=== PATIENT | male | born 1985 | race Caucasian/White ===

== ENCOUNTER 2019-07-23 13:13 | Observation (INO) | payer SELFPAY ==
[~2019-07-23 13:13] MED LIST: Iopamidol-370 76% 500 ML 1 ML ONE
[2019-07-23] MEDS ORDERED: Acetaminophen 500 MG TAB ONE (13:27)
[2019-07-23] MEDS ORDERED: Ketorolac Tromethamine 30 MG/ML VIAL ONE (13:27)
[2019-07-23] MEDS ORDERED: Diazepam 5 MG TAB ONE (13:28)
--- NOTE | 2019-07-23 13:53 | RAD ---
CHEST 1 VIEW: INDICATION: Back pain and chest pain. FINDINGS: The lungs are mildly hyperinflated but clear. Heart size is normal-appearing. No pleural effusion o r pneumothorax is evident. IMPRESSION: Mild hyperinflation without acute airspace opacity. POS: BH
[2019-07-23 13:57] LABS: Hemoglobin 15.8 g/dL (14.0-18.0); Mean Corpuscular HGB CONC 33.5 g/dL (32.0-36.0); Mean Corpuscular Hemoglobin 31.5 pg (27.0-31.0); Mean Corpuscular Volume 94.1 fL (78.0-98.0); Mean Platelet Volume 8.7 fL (7.4-10.4); Platelet Count 239 thou/uL (130-400); RBC Distribution Width 12.6 % (11.5-14.5); Red Blood Cell (RBC) Count 5.03 mill/uL (4.70-6.10); White Blood Cell (WBC) Count 6.2 thou/uL (4.8-10.8)
[2019-07-23 14:19] LABS: Acetaminophen Less than 6.0 mcg/mL (10.0-30.0); Alcohol Less than 10 mg/dL (Less than 10); Band 1 % (5-11); Eosinophils 1 % (0-10); Lymphocytes 56 % (21-51); MDiff Complete? YES; Monocytes 5 % (0-10); Neutrophil 37 % (42-75); Platelet Morphology Comment Appears Adequate; RBC Morphology Normal; Salicylate Less than 8.0 mg/dL (15.0-30.0)
[2019-07-23 14:21] LABS: ALT (SGPT) 14 U/L (8-55); AST (SGOT) 19 U/L (5-34); Albumin 4.5 g/dL (3.5-5.0); Alkaline Phosphatase 87 U/L (40-110); Anion Gap 15 mmol/L (10-20); BUN (Urea Nitrogen) 9 mg/dL (8.9-20.6); Bilirubin, Total 0.4 mg/dL (0.2-1.2); Calc. Creatinine Clearance 0 mL/min (70-130); Calcium 9.3 mg/dL (7.8-10.44); Carbon Dioxide 22 mmol/L (22-29); Chloride 106 mmol/L (98-107); Estimated GFR-MDRD 87; Globulin 3.4 g/dL (2.4-3.5); Glucose 94 mg/dL (70-105); Potassium 3.7 mmol/L (3.5-5.1); Protein, Total 7.9 g/dL (6.0-8.3); Sodium 139 mmol/L (136-145)
--- NOTE | 2019-07-23 14:56 | CT ---
CHEST CT ANGIOGRAM WITH 3D RENDERING ABDOMEN CTA WITH 3D RENDERING: HISTORY: Aortic dissection with worsening back and abdominal pain. FINDINGS: CT angiogram chest with 3D rendering demonstrates no evidence for aortic aneurysm or dissection. Mary dequate contrast within the pulmonary arteries to evaluate for pulmonary embolism. No acute pulmonar y parenchymal process. No mediastinal mass or adenopathy. No pleural effusion or pericardial effusi on. ABDOMEN CT ANGIOGRAM WITH 3D RENDERING: The abdominal aorta appears unremarkable without evidence for aneurysm or significant stenosis. No e vidence for an associated calcified plaque. The visualized celiac artery, superior mesenteric artery , right and left renal arteries, and inferior mesenteric arteries appear unremarkable. No abscess or abnormal fluid collection. Evidence for a left-sided pars defect at L5-S1 without significant anter olisthesis. IMPRESSION: Unremarkable CT angiogram of the chest and abdomen. No evidence for aortic aneurysm or dissection. Left-sided pars defect at L5 without significant anterolisthesis. POS: RRE
[2019-07-23 16:02] LABS: Bilirubin Negative (Negative); Blood, Urine Negative (Negative); Clarity Clear (Clear); Glucose, Urine (Dipstick) Normal (Negative); Leukocyte Negative Leu/uL (Negative); Nitrite Negative (Negative); Protein, Urine (Dipstick) Negative (Neg-Trace); Urobilinogen Normal mg/dL (Less than 2)
[2019-07-23] MEDS ORDERED: Ketamine 50 MG/ML (10ML VIAL) ONE (16:02)
[2019-07-23] MEDS ORDERED: HYDROcodone/Acetaminophen 10/325 mg Tablet ONE (16:03)
[2019-07-23 16:12] LABS: Amphetamine Not Detected (NotDetected); Barbiturates Screen Not Detected (NotDetected); Benzodiazepine Screen Not Detected (NotDetected); Cocaine Metabolite Screen Not Detected (NotDetected); Medtox Control Line Valid? VALID (VALID); Medtox Reader # READER 1; Methadone Not Detected (NotDetected); Methamphetamine Not Detected (NotDetected); Opiate Screen Not Detected (NotDetected); Oxycodone Screen Not Detected (NotDetected); Phencyclidine (PCP) Not Detected (NotDetected); THC/Cannabinoid Screen Detected (NotDetected); Tricyclic Screen Not Detected (NotDetected)
--- NOTE | 2019-07-23 19:33 | CT ---
CT HEAD NONCONTRAST: History: Altered mental status. Comparison: 04-27-15 FINDINGS: There is no evidence of acute intracranial hemorrhage or infarct. The ventricles appear normal in siz e, shape, and position. There is no mass effect or shift of midline structures. Post-operative change s of the face are partially visualized. IMPRESSION: No acute intracranial abnormalities are demonstrated. POS: BST
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
[2019-07-23] MEDS ORDERED: Ondansetron PF 4 MG/2 ML Vial IVP PRN (21:12)
[2019-07-23] MEDS ORDERED: Acetaminophen 325 MG TAB PO PRN (21:12)
[2019-07-23] MEDS ORDERED: Ketorolac Tromethamine 30 MG/ML VIAL IVP PRN (21:12)
[2019-07-23] MEDS ORDERED: Cyclobenzaprine 10 MG TAB PO SCH (21:15)
[2019-07-23 23:49] VITALS: BMI 25.0
--- NOTE | 2019-07-24 06:02 | PDOC.FM ---
- Subjective Subjective: Pt remains with thoracic back pain today. He has not felt this before. He did not take medications overnight to help with pain. He has difficulty rolling from side to side. Pain with light palpation. - Objective Vital Signs & Weight: Vital Signs (12 hours) Temp Pulse Resp BP Pulse Ox 07/24/19 03:53 97.5 F L 49 L 12 117/70 99 07/23/19 22:55 98.6 F 46 L 16 119/78 99 Weight Weight 76.975 kg Result Diagrams: 07/23/19 13:42 07/23/19 13:42 Phys Exam - Physical Examination uncomfortable appearing HEENT: PERRLA, moist MMs Neck: no JVD, full ROM Respiratory: no wheezing, clear to auscultation bilateral Cardiovascular: RRR, no significant murmur Gastrointestinal: soft, non-tender, no distention Musculoskeletal: no edema, pulses present Tenderness to palpation R>L flank/axillary region; Thoracic PS tenderness Neurological: non-focal, normal sensation Psychiatric: normal affect, A&O x 3 Dx/Plan (1) Muscle spasm Code(s): M62.838 - OTHER MUSCLE SPASM Status: Acute (2) Thoracic back sprain Code(s): S23.9XXA - SPRAIN OF UNSPECIFIED PARTS OF THORAX, INITIAL ENCOUNTER Status: Acute (3) Vasovagal episode Code(s): R55 - SYNCOPE AND COLLAPSE Status: Acute - Plan Plan: Thoracic back pain - likely muscle spasm - continue flexeril prn, start tylenol/ibuprofen if pain continues - PT / OT to evaluate today Vasovagal - likely 2/2 pain. - bradycardic on monitor - orthostatics negative Dispo: Stable Code: Full PCP: None Addendum - Attending - Attending Attestation Date/Time: 07/24/19 8049 I personally evaluated the patient and discussed the management with Dr. Baker. I agree with the History, Examination, Assessment and Plan documented above with any addition or exceptions noted below. Neuro to evaluate for seizure like activity this morning. Continue pain control. igor d/c later today or tomorrow.
[2019-07-24] MEDS ORDERED: Cyclobenzaprine 10 MG TAB PO SCH (09:00)
[2019-07-24] MEDS ORDERED: Magnevist 469MG/ML 20 ML VIAL ONE (09:06)
[2019-07-24] MEDS ORDERED: Ibuprofen 800 MG TAB PO PRN (11:23)
[2019-07-24] MEDS ORDERED: traMADol HCl 50 MG TAB PO PRN (11:25)
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
[2019-07-24 15:42] VITALS: BP 137/69; TEMP 98.3
--- NOTE | 2019-07-24 15:49 | MRI ---
MRI BRAIN WITH AND WITHOUT CONTRAST: DATE: 07/24/2019 HISTORY: 33-year-old male with seizure and altered mental status COMPARISON: 08/18/2008 TECHNIQUE: Multiplanar, multisequence MRI of the brain performed pre- and post-IV injection of gadolinium based contrast agent. FINDINGS: At the far anterior aspect of the left temporal lobe, including temporal tip, there is a small to mod erate-sized region of encephalomalacia and gliosis. There is a thin vertically oriented tract of gliosis in the right frontal lobe, in the centrum semiov nicole, leading to the superior surface of the body of the right lateral ventricle. No gross asymmetry between the right and left hippocampus. Ventricles are normal in size and configuration. No new intra-axial signal abnormality, restricted diffusion, abnormal enhancement, mass, mass effect, midline shift, or extra-axial fluid collection. No interval change overall. IMPRESSION: 1) old insult at the left temporal tip. 2) tract from previously removed right ventriculostomy catheter. 3) no acute or aggressive findings.
--- NOTE | 2019-07-24 16:33 | EEG ---
Referring Physician: Jayden TABARES EEG # [id number] TEST TYPE: EXTENDED CONTINUOUS VIDEO EEG RECORDING. REPORT: This EEG was performed using 24 channel [employer] video EEG machine with 24 disc electrodes. This was an extended 2 hour 10 minutes of inpatient video EEG recording. Digital analysis of the EEG was done for spike and seizure detection which revealed no abnormalities. BACKGROUND: The posterior background rhythm is 9-10 hertz. The background rhythm attenuates with eye opening and enhances with eye closure. HYPERVENTILATION: No significant response seen with hyperventilation. PHOTIC STIMULATION: Bioccipital symmetric driving response is observed with photic stimulation. SLEEP: Drowsiness and sleep are observed. EEG DIAGNOSIS: NORMAL AWAKE, DROWSY AND ASLEEP EEG. Perfect Binder Operator: CASS Anesthesia Attending: EEG.DONTE DUTTA
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
== END 2019-07-24 16:42 | disposition home or self-care (01) ==
LOC: ERS 13:13 → 2SE 20:47
PROVIDERS: ADMIT Family Medicine; ATTEND Family Medicine
DX: S23.9XXA Sprain of unspecified parts of thorax, initial encounter (principal); M62.838 Other muscle spasm; R55 Syncope and collapse; Z88.0 Allergy status to penicillin; Z88.5 Allergy status to narcotic agent
CPT/HCPCS: 36415; 70450; 70553; 71045; 71275; 72191; 74175; 80053; 80306; 80307; 81003; 84146; 84484; 85025; 93005; 95712; 95816; 95819; 95957; 96361; 96374; 96375; 96376; A9579; G0378; J1885; Q9967

== ENCOUNTER 2021-07-01 18:01 | Emergency (ER) | payer OTHER, SELFPAY ==
[2021-07-01] MEDS ORDERED: Xylocaine 1% w/ Epi 1:100K 10 ML VIAL ONE (18:43)
[2021-07-01] MEDS ORDERED: Rabies Vaccine Human 2.5 UNITS VIAL IM ONE (20:00)
== END 2021-07-01 20:24 | disposition home or self-care (01) ==
LOC: ERS 18:01
DX: S01.551A Open bite of lip, initial encounter (principal); W54.0XXA Bitten by dog, initial encounter; Z23 Encounter for immunization
CPT/HCPCS: 40650; 90471; 90675; 94760

== ENCOUNTER 2021-07-28 09:42 | Emergency (ER) | payer OTHER, MEDICARE ==
[2021-07-28] MEDS ORDERED: Dexameth. Sod Phosp. 10 MG/ML (CHEMO USE ONLY) ONE (11:26)
== END 2021-07-28 11:32 | disposition home or self-care (01) ==
LOC: ERS 09:42
DX: R05.9 Cough, unspecified (principal); S01.511D Laceration without foreign body of lip, subsequent encounter; W54.0XXD Bitten by dog, subsequent encounter
CPT/HCPCS: 99283; J1100